=== PATIENT | male | born 1965 | race Caucasian/White ===

== ENCOUNTER 2018-02-13 13:22 | Emergency (ER) | payer OTHER | END 2018-02-13 14:49 | disposition home or self-care (01) | LOC: E/R 13:22 | DX: G51.0 Bell's palsy (principal); R40.2142 Coma scale, eyes open, spontaneous, at arrival to emergency department; R40.2252 Coma scale, best verbal response, oriented, at arrival to emergency department; R40.2362 Coma scale, best motor response, obeys commands, at arrival to emergency department | CPT/HCPCS: 70450; 99284-25 ==

== ENCOUNTER 2018-06-04 17:07 | Emergency (ER) | payer OTHER | END 2018-06-04 18:49 | disposition home or self-care (01) | LOC: FTE 17:07 | DX: H53.8 Other visual disturbances (principal); R93.0 Abnormal findings on diagnostic imaging of skull and head, not elsewhere classified | CPT/HCPCS: 70450; 82962; 99284-25 ==